=== PATIENT | male | born 1945 | race Caucasian/White ===

== ENCOUNTER 2017-10-24 22:22 | Inpatient (IN) ==
[2017-10-24] MEDS ORDERED: ASPIRIN 325 MG TABLET PO STA (23:02)
[2017-10-24] MEDS ORDERED: DILTIAZEM 50 MG/10 ML VIAL IV STA (23:03)
[2017-10-24] MEDS ORDERED: DILTIAZEM 100 MG VIAL.ADD IV ONE (23:14)
[2017-10-24] MEDS ORDERED: SODIUM CHLORIDE 0.9% 100 ML IV ONE (23:15)
[2017-10-24] MEDS ORDERED: DILTIAZEM 25 MG/5 ML VIAL IV STA (23:16)
[2017-10-24 23:18] LABS: Basophils % 0.4 % (0.0-0.8); Eosinophils # 0.2 10*3/uL (0.0-0.87); Eosinophils % 2.1 % (0.00-10.9); Hematocrit 29.8 VOL% (42.0-52.0); Hemoglobin 9.2 GM/DL (14.0-18.0); Immature Granulocytes % 0.4 %; Immature Granulocytes Absolute 0.03 #; Lymphocytes # 0.4 10*3/uL (1.4-4.0); Lymphocytes % 5.5 % (21.2-54.2); Mean Corpuscular HGB Conc 30.9 GM/DL (32-36); Mean Corpuscular Hemoglobin 27 PG (27-34); Mean Corpuscular Volume 87.1 FL (87-102); Mean Platelet Volume 10.4 FL (9.6-12.0); Monocytes # 0.3 10*3/uL (0.11-0.8); Monocytes % 4.1 % (1.7-12.7); Neutrophils # 6.8 10*3/uL (1.4-7.4); Neutrophils % 87.5 % (38.7-73.9); Platelet Count 278 T/CUMM (130-400); Red Blood Count 3.42 MC/CUMM (3.8-5.5); White Blood Count 7.8 T/CUMM (4-12)
[2017-10-24] MEDS ORDERED: ASPIRIN 325 MG TABLET ONE (23:18)
[2017-10-24 23:25] LABS: INR 1.1; PT Patient Result 11.4 SECS
[2017-10-24] MEDS ORDERED: DILTIAZEM INJ 100 MG in SODIUM CHLORIDE 0.9% 100 ML IV SCH (23:30)
[2017-10-24 23:38] LABS: Alanine Aminotransferase 18 U/L (16-61); Albumin 3.7 G/DL (3.4-5.0); Alkaline Phosphatase 110 U/L (45-117); Aspartate Amino Transferase 19 U/L (0-37); Blood Urea Nitrogen 27 MG/DL (7-18); Calcium 8.6 MG/DL (8.5-10.1); Glucose 171 MG/DL (74-106); Osmolality,Calculated 289.3 MOS/KG (273-304); Sodium 141 MMOL/L (136-145); Total Protein 7.3 G/DL (6.4-8.3)
[2017-10-24 23:58] LABS: Troponin I Only 0.068 NG/ML (0.00-0.045)
[2017-10-25] MEDS ORDERED: FUROSEMIDE 40 MG/4 ML VIAL IV STA (00:03)
[2017-10-25] MEDS ORDERED: FUROSEMIDE 20 MG/2 ML VIAL ONE (00:11)
[2017-10-25 00:32] LABS: Amorphous Crystals,Urine Occasional /HPF (Few); Apearance,Urine Slightly Hazy (Clear); Bilirubin,Urine Negative (Negative); Blood, Urine Negative (Negative); Glucose,Urine (UA) Negative (Negative); Hyaline Casts,Urine 4 /LPF (0-3); Ketones,Urine Negative (Negative); Mucus,Urine Few /LPF (Occasional); Nitrite,Urine Negative (Negative); Protein,Urine 30 MG/DL; RBC,Urine 18 /HPF (0-4); Squamous Epithelial Cell,Urine Occasional /HPF (0-10); Urine Color Yellow (Yellow); Urine Specific Gravity 1.017 (1.001-1.035); Urine Urobilinogen < 2.0 EU/DL (0.2-1.0); WBC,Urine 56 /HPF (0-6)
[2017-10-25] MEDS ORDERED: DEXTROSE 50% 25 GM/50 ML VIAL IV PRN (02:39)
[2017-10-25] MEDS ORDERED: GLUCAGON 1 MG VIAL IM PRN (02:39)
[2017-10-25] MEDS ORDERED: ACETAMINOPHEN 325 MG TABLET PO PRN (02:39)
[2017-10-25] MEDS ORDERED: ONDANSETRON 4 MG/2 ML VIAL IV PRN (02:39)
[2017-10-25 05:28] LABS: Basophils % 0.4 % (0.0-0.8); Eosinophils # 0.2 10*3/uL (0.0-0.87); Hematocrit 28.4 VOL% (42.0-52.0); Hemoglobin 8.7 GM/DL (14.0-18.0); Immature Granulocytes % 0.4 %; Immature Granulocytes Absolute 0.03 #; Lymphocytes # 0.6 10*3/uL (1.4-4.0); Lymphocytes % 7.7 % (21.2-54.2); Mean Corpuscular HGB Conc 30.6 GM/DL (32-36); Mean Corpuscular Hemoglobin 27 PG (27-34); Mean Corpuscular Volume 87.4 FL (87-102); Mean Platelet Volume 9.7 FL (9.6-12.0); Monocytes # 0.5 10*3/uL (0.11-0.8); Neutrophils # 6.3 10*3/uL (1.4-7.4); Neutrophils % 82.5 % (38.7-73.9); Platelet Count 238 T/CUMM (130-400); Red Blood Count 3.25 MC/CUMM (3.8-5.5); Red Cell Distribution Width 17.7 % (9.3-17.3); White Blood Count 7.6 T/CUMM (4-12)
[2017-10-25 08:10] LABS: Albumin 3.5 G/DL (3.4-5.0); Bilirubin,Total 0.9 MG/DL (0.2-1.0); Calcium 7.9 MG/DL (8.5-10.1); Osmolality,Calculated 287.3 MOS/KG (273-304); Potassium 3.2 MMOL/L (3.5-5.1); Total Protein 6.6 G/DL (6.4-8.3)
[2017-10-25 08:12] LABS: Troponin I Only 0.361 NG/ML (0.00-0.045)
[2017-10-25] MEDS: INSULIN LISPRO 100 UNIT/ML SUBCUT SCH ×4 (08:19→21:52)
[2017-10-25] MEDS: ENOXAPARIN 40 MG/0.4 ML SYRINGE SUBCUT SCH (08:53)
[2017-10-25] MEDS: LISINOPRIL 20 MG TABLET PO SCH (09:42)
[2017-10-25] MEDS: CYANOCOBALAMIN 500 MCG TABLET PO SCH (09:42)
[2017-10-25] MEDS: FUROSEMIDE 40 MG TABLET PO SCH ×2 (09:42→21:22)
[2017-10-25] MEDS: ATORVASTATIN 80 MG TABLET PO SCH (09:42)
[2017-10-25] MEDS: DILTIAZEM 60 MG TABLET PO SCH ×2 (09:42→21:22)
[2017-10-25] MEDS: MULTIVITAMIN (CENTRUM) TABLET PO SCH (09:42)
[2017-10-25] MEDS: ASPIRIN EC 81 MG TABLET PO SCH (09:43)
[2017-10-25] MEDS: CARVEDILOL 25 MG TABLET PO SCH ×2 (09:43→21:22)
[2017-10-25] MEDS: BRIMONIDINE/TIMOLOL OPH SOLN 5 ML BOTTLE BOTH EYES SCH ×2 (11:02→21:22)
[2017-10-25] MEDS: cefTRIAXone 1,000 MG in SYRINGE 1 EACH IV SCH (11:02)
[2017-10-25] MEDS ORDERED: LATANOPROST 0.005% OPH SOLN 2.5 ML BOTTLE BOTH EYES SCH (21:00)
[2017-10-26] MEDS: INSULIN LISPRO 100 UNIT/ML SUBCUT SCH ×2 (08:40→12:08)
[2017-10-26] MEDS: ATORVASTATIN 80 MG TABLET PO SCH (08:43)
[2017-10-26] MEDS: LISINOPRIL 20 MG TABLET PO SCH (08:46)
[2017-10-26] MEDS: CARVEDILOL 25 MG TABLET PO SCH (08:47)
[2017-10-26] MEDS: MULTIVITAMIN (CENTRUM) TABLET PO SCH (08:47)
[2017-10-26] MEDS: ASPIRIN EC 81 MG TABLET PO SCH (08:49)
[2017-10-26] MEDS: DILTIAZEM 60 MG TABLET PO SCH (08:49)
[2017-10-26] MEDS: CYANOCOBALAMIN 500 MCG TABLET PO SCH (08:49)
[2017-10-26] MEDS: FUROSEMIDE 40 MG TABLET PO SCH (08:50)
[2017-10-26] MEDS: ENOXAPARIN 40 MG/0.4 ML SYRINGE SUBCUT SCH (08:51)
[2017-10-26] MEDS: cefTRIAXone 1,000 MG in SYRINGE 1 EACH IV SCH ×2 (08:53→09:47)
[2017-10-26] MEDS: BRIMONIDINE/TIMOLOL OPH SOLN 5 ML BOTTLE BOTH EYES SCH (09:18)
[2017-10-26 12:00] VITALS: BP 108/72
== END 2017-10-26 14:44 | disposition home or self-care (01) | DRG 309 ==
LOC: N.ED 22:22 → SUATTDRO 10-25 02:39 → N.EDINP 10-25 02:39 → N.TELES 10-25 03:12
PROVIDERS: ADMIT Internal Medicine Infectious Disease; ATTEND Internal Medicine

== ENCOUNTER 2017-12-03 15:29 | Inpatient (IN) ==
[2017-12-03] MEDS ORDERED: TEMAZEPAM 7.5 MG CAPSULE PO PRN (15:31)
[2017-12-03] MEDS ORDERED: BENZTROPINE 2 MG/2 ML AMP IV PRN (15:31)
[2017-12-03] MEDS ORDERED: MYLANTA/LIDO VISC 2:1 300 ML BOTTLE SWISH/SWAL PRN (15:31)
[2017-12-03] MEDS ORDERED: chlorproMAZINE 25 MG TABLET PO PRN (15:31)
[2017-12-03] MEDS ORDERED: diphenhydrAMINE CAP 25 MG CAPSULE PO PRN (15:31)
[2017-12-03] MEDS ORDERED: LOPERAMIDE 2 MG CAPSULE PO PRN ×2 (15:31)
[2017-12-03] MEDS ORDERED: PROMETHAZINE INJ 25 MG in SODIUM CHLORIDE 0.9% 50 ML IV PRN (15:31)
[2017-12-03] MEDS ORDERED: ACETAMINOPHEN 325 MG TABLET PO PRN (15:31)
[2017-12-03] MEDS ORDERED: LACTULOSE 20 GM/30 ML UDCUP PO PRN (15:31)
[2017-12-03] MEDS ORDERED: chlorproMAZINE INJ 50 MG in SODIUM CHLORIDE 0.9% 100 ML IV PRN (15:31)
[2017-12-03] MEDS ORDERED: chlorproMAZINE INJ 25 MG in SODIUM CHLORIDE 0.9% 100 ML IV PRN (15:31)
[2017-12-03] MEDS ORDERED: guaiFENesin 200 MG/10 ML UDCUP PO PRN (15:31)
[2017-12-03] MEDS ORDERED: ALUMINUM/MAGNES/SIMETH MAX STR 30 ML UDCUP PO PRN (15:31)
[2017-12-03] MEDS ORDERED: ONDANSETRON 4 MG/2 ML VIAL IV PRN (15:31)
[2017-12-03] MEDS ORDERED: traMADol 50 MG TABLET PO PRN (15:31)
[2017-12-03] MEDS ORDERED: MAGNESIUM HYDROXIDE SUSP 30 ML UDCUP PO PRN (15:31)
[2017-12-03] MEDS ORDERED: MYLANTA/LIDO VISC 2:1 300 ML BOTTLE SWISH/SPIT PRN (15:31)
[2017-12-03] MEDS ORDERED: ALPRAZolam 0.25 MG TABLET PO PRN (15:31)
[2017-12-03 16:44] LABS: Basophils % 1.3 % (0.0-0.8); Eosinophils # 0.1 10*3/uL (0.0-0.87); Eosinophils % 5.2 % (0.00-10.9); Hematocrit 23.4 VOL% (42.0-52.0); Hemoglobin 7.1 GM/DL (14.0-18.0); Lymphocytes # 0.7 10*3/uL (1.4-4.0); Lymphocytes % 32.3 % (21.2-54.2); Mean Corpuscular HGB Conc 30.3 GM/DL (32-36); Mean Corpuscular Hemoglobin 24 PG (27-34); Mean Corpuscular Volume 79.6 FL (87-102); Mean Platelet Volume 10.4 FL (9.6-12.0); Monocytes # 1.3 10*3/uL (0.11-0.8); Monocytes % 55.9 % (1.7-12.7); Neutrophils # 0.1 10*3/uL (1.4-7.4); Neutrophils % 5.3 % (38.7-73.9); Platelet Count 333 T/CUMM (130-400); Red Blood Count 2.94 MC/CUMM (3.8-5.5); Red Cell Distribution Width 16.8 % (9.3-17.3); White Blood Count 2.3 T/CUMM (4-12)
[2017-12-03] MEDS: PIPERACILLIN/TAZOBACTAM 3,375 MG in SODIUM CHLORIDE 0.9% 100 ML IV SCH (16:51)
[2017-12-03 17:08] LABS: Albumin 2.9 G/DL (3.4-5.0); Bilirubin,Total 0.6 MG/DL (0.2-1.0); Calcium 8.1 MG/DL (8.5-10.1); Potassium 4.3 MMOL/L (3.5-5.1); Total Protein 6.7 G/DL (6.4-8.3); Uric Acid 5.3 MG/DL (3.5-7.2)
[2017-12-03 17:41] LABS: Eosinophils 7 % (0-10); Lymphocytes 50 % (20-55); Segmented Neutrophils 8 % (50-85); Total Cells Counted 100
[2017-12-03 17:42] LABS: Hypochromasia 1+; Microcytosis 1+; Ovalocytes Few; Platelet Estimate Normal; Polychromasia Few
[2017-12-03] MEDS: FLUCONAZOLE 200 MG TABLET PO SCH (18:58)
[2017-12-03] MEDS: FILGRASTIM-SNDZ 300 MCG/0.5 ML SYRINGE SUBCUT SCH (18:58)
[2017-12-03 20:17] LABS: Apearance,Urine CLOUDY (Clear); Bilirubin,Urine Negative (Negative); Blood, Urine Moderate mg/dL (Negative); Glucose,Urine (UA) Negative (Negative); Granular Casts,Urine 6 /LPF (0-1); Hyaline Casts,Urine 8 /LPF (0-3); Ketones,Urine Negative (Negative); Mucus,Urine Few /LPF (Occasional); Nitrite,Urine Negative (Negative); Protein,Urine 30 MG/DL; RBC,Urine 344 /HPF (0-4); Squamous Epithelial Cell,Urine Occasional /HPF (0-10); Urine Color Yellow (Yellow); Urine Specific Gravity 1.014 (1.001-1.035); Urine Urobilinogen < 2.0 EU/DL (0.2-1.0); WBC,Urine 2 /HPF (0-6)
[2017-12-03] MEDS ORDERED: LATANOPROST 0.005% OPH SOLN 2.5 ML BOTTLE BOTH EYES SCH (21:00)
[2017-12-03] MEDS: DILTIAZEM 60 MG TABLET PO SCH (21:06)
[2017-12-03] MEDS: FERROUS SULFATE 325 MG TABLET PO SCH (21:06)
[2017-12-03] MEDS: BRIMONIDINE/TIMOLOL OPH SOLN 5 ML BOTTLE BOTH EYES SCH (21:07)
[2017-12-04] MEDS: PIPERACILLIN/TAZOBACTAM 3,375 MG in SODIUM CHLORIDE 0.9% 100 ML IV SCH ×2 (06:00→08:49)
[2017-12-04] MEDS ORDERED: HEPARIN LOCK FLUSH 500 UNIT/5 ML SYRINGE IV ONE (07:31)
[2017-12-04 07:45] LABS: Eosinophils # 0.2 10*3/uL (0.0-0.87); Eosinophils % 2.1 % (0.00-10.9)
[2017-12-04 07:50] LABS: Basophils # 0.1 10*3/uL (0.0-0.2); Basophils % 0.7 % (0.0-0.8); Hematocrit 29.2 VOL% (42.0-52.0); Immature Granulocytes % 0.8 %; Immature Granulocytes Absolute 0.08 #; Lymphocytes % 9.6 % (21.2-54.2); Mean Corpuscular HGB Conc 31.2 GM/DL (32-36); Mean Corpuscular Hemoglobin 25 PG (27-34); Mean Corpuscular Volume 81.1 FL (87-102); Mean Platelet Volume 9.8 FL (9.6-12.0); Monocytes # 2.1 10*3/uL (0.11-0.8); Monocytes % 19.6 % (1.7-12.7); Neutrophils # 7.1 10*3/uL (1.4-7.4); Neutrophils % 67.2 % (38.7-73.9); Platelet Count 326 T/CUMM (130-400); Red Cell Distribution Width 16.4 % (9.3-17.3)
[2017-12-04 07:55] LABS: White Blood Count 10.6 T/CUMM (4-12)
[2017-12-04 07:56] LABS: Hemoglobin 9.1 GM/DL (14.0-18.0)
[2017-12-04 08:04] LABS: Albumin 2.8 G/DL (3.4-5.0); Bilirubin,Total 0.7 MG/DL (0.2-1.0); Calcium 8.1 MG/DL (8.5-10.1); Osmolality,Calculated 280.4 MOS/KG (273-304); Potassium 3.9 MMOL/L (3.5-5.1); Total Protein 6.7 G/DL (6.4-8.3)
[2017-12-04 08:16] LABS: Band Neutrophils 15 % (0-10); Eosinophils 1 % (0-10); Lymphocytes 5 % (20-55); Metamyelocytes 1 %; Segmented Neutrophils 55 % (50-85); Total Cells Counted 100
[2017-12-04 08:17] LABS: Hypochromasia 1+
[2017-12-04 08:18] LABS: Elliptocytes Few; Microcytosis 1+; Poikilocytosis 1+
[2017-12-04 08:19] LABS: Acanthocytes Few; Platelet Estimate Normal
[2017-12-04] MEDS ORDERED: CARVEDILOL 25 MG TABLET PO SCH (09:00)
[2017-12-04] MEDS ORDERED: MULTIVITAMIN (CENTRUM) TABLET PO SCH (09:00)
[2017-12-04] MEDS ORDERED: CYANOCOBALAMIN 500 MCG TABLET PO SCH (09:00)
[2017-12-04] MEDS: FERROUS SULFATE 325 MG TABLET PO SCH (09:22)
[2017-12-04] MEDS: FLUCONAZOLE 200 MG TABLET PO SCH (09:22)
[2017-12-04] MEDS: DILTIAZEM 60 MG TABLET PO SCH (09:23)
[2017-12-04] MEDS: FILGRASTIM-SNDZ 300 MCG/0.5 ML SYRINGE SUBCUT SCH (09:26)
[2017-12-04] MEDS: BRIMONIDINE/TIMOLOL OPH SOLN 5 ML BOTTLE BOTH EYES SCH (09:31)
[2017-12-04 13:06] VITALS: BP 102/66
== END 2017-12-04 14:35 | disposition home or self-care (01) | DRG 809 ==
LOC: N.4EOUT 15:29 → N.4E 15:30
PROVIDERS: ADMIT Specialist; ATTEND Specialist

== ENCOUNTER 2018-09-17 17:58 | Inpatient (IN) ==
[2018-09-17 19:39] LABS: Basophils # 0.1 10*3/uL (0.0-0.2); Basophils % 0.8 % (0.0-0.8); Eosinophils # 0.4 10*3/uL (0.0-0.87); Eosinophils % 3.3 % (0.00-10.9); Hematocrit 24.4 VOL% (42.0-52.0); Hemoglobin 7.4 GM/DL (14.0-18.0); Immature Granulocytes % 0.5 %; Immature Granulocytes Absolute 0.06 #; Lymphocytes # 0.7 10*3/uL (1.4-4.0); Mean Corpuscular HGB Conc 30.3 GM/DL (32-36); Mean Corpuscular Hemoglobin 26 PG (27-34); Mean Corpuscular Volume 87.1 FL (87-102); Mean Platelet Volume 11.6 FL (9.6-12.0); Monocytes # 0.7 10*3/uL (0.11-0.8); Monocytes % 6.3 % (1.7-12.7); Neutrophils # 9.6 10*3/uL (1.4-7.4); Neutrophils % 83.1 % (38.7-73.9); Platelet Count 221 T/CUMM (130-400); Red Cell Distribution Width 17.4 % (9.3-17.3); White Blood Count 11.5 T/CUMM (4-12)
[2018-09-17 19:49] LABS: PT Patient Result 10.9 SECS; Partial Thromboplastin Time 27.1 SECS (0-40)
[2018-09-17 19:57] LABS: Alanine Aminotransferase 19 U/L (16-61); Albumin 3.1 G/DL (3.4-5.0); Alkaline Phosphatase 107 U/L (45-117); Aspartate Amino Transferase 18 U/L (0-37); Bilirubin,Total < 0.39 MG/DL (0.2-1.0); Blood Urea Nitrogen 28 MG/DL (7-18); Calcium 8.4 MG/DL (8.5-10.1); Glucose 111 MG/DL (74-106); Osmolality,Calculated 281.7 MOS/KG (273-304); Potassium 4.3 MMOL/L (3.5-5.1); Sodium 138 MMOL/L (136-145); Total Protein 6.7 G/DL (6.4-8.3)
[2018-09-17] MEDS ORDERED: SODIUM CHLORIDE 0.9% 1,000 ML IV PRN (20:35)
[2018-09-17] MEDS ORDERED: ACETAMINOPHEN 325 MG TABLET PO PRN (20:39)
[2018-09-17] MEDS ORDERED: chlorproMAZINE 25 MG TABLET PO PRN (20:39)
[2018-09-17] MEDS ORDERED: traMADol 50 MG TABLET PO PRN (20:39)
[2018-09-17] MEDS ORDERED: LACTULOSE 20 GM/30 ML UDCUP PO PRN (20:39)
[2018-09-17] MEDS ORDERED: guaiFENesin 200 MG/10 ML UDCUP PO PRN (20:39)
[2018-09-17] MEDS ORDERED: MYLANTA/LIDO VISC 2:1 300 ML BOTTLE SWISH/SPIT PRN (20:39)
[2018-09-17] MEDS ORDERED: chlorproMAZINE INJ 25 MG in SODIUM CHLORIDE 0.9% 100 ML IV PRN (20:39)
[2018-09-17] MEDS ORDERED: chlorproMAZINE INJ 50 MG in SODIUM CHLORIDE 0.9% 100 ML IV PRN (20:39)
[2018-09-17] MEDS ORDERED: MAGNESIUM HYDROXIDE SUSP 30 ML UDCUP PO PRN (20:39)
[2018-09-17] MEDS ORDERED: ONDANSETRON 4 MG/2 ML VIAL IV PRN (20:39)
[2018-09-17] MEDS ORDERED: TEMAZEPAM 7.5 MG CAPSULE PO PRN (20:39)
[2018-09-17] MEDS ORDERED: MYLANTA/LIDO VISC 2:1 300 ML BOTTLE SWISH/SWAL PRN (20:39)
[2018-09-17] MEDS ORDERED: BENZTROPINE 2 MG/2 ML AMP IV PRN (20:39)
[2018-09-17] MEDS ORDERED: LOPERAMIDE 2 MG CAPSULE PO PRN ×2 (20:39)
[2018-09-17] MEDS ORDERED: ALUMINUM/MAGNES/SIMETH MAX STR 30 ML UDCUP PO PRN (20:39)
[2018-09-17] MEDS ORDERED: diphenhydrAMINE CAP 25 MG CAPSULE PO PRN (20:39)
[2018-09-17] MEDS ORDERED: PROMETHAZINE INJ 25 MG in SODIUM CHLORIDE 0.9% 50 ML IV PRN (20:39)
[2018-09-17] MEDS: SODIUM CHLORIDE 0.45% 1,000 ML IV SCH (22:45)
[2018-09-18 06:06] LABS: Basophils # 0.1 10*3/uL (0.0-0.2); Basophils % 1.1 % (0.0-0.8); Eosinophils # 0.4 10*3/uL (0.0-0.87); Eosinophils % 3.8 % (0.00-10.9); Hematocrit 26.1 VOL% (42.0-52.0); Hemoglobin 8.1 GM/DL (14.0-18.0); Immature Granulocytes % 0.7 %; Immature Granulocytes Absolute 0.07 #; Lymphocytes # 0.7 10*3/uL (1.4-4.0); Lymphocytes % 7.4 % (21.2-54.2); Mean Corpuscular Hemoglobin 27 PG (27-34); Mean Corpuscular Volume 87.6 FL (87-102); Mean Platelet Volume 9.8 FL (9.6-12.0); Monocytes # 0.6 10*3/uL (0.11-0.8); Monocytes % 6.8 % (1.7-12.7); Neutrophils # 7.6 10*3/uL (1.4-7.4); Neutrophils % 80.2 % (38.7-73.9); Platelet Count 275 T/CUMM (130-400); Red Blood Count 2.98 MC/CUMM (3.8-5.5); Red Cell Distribution Width 16.3 % (9.3-17.3); White Blood Count 9.4 T/CUMM (4-12)
[2018-09-18 06:22] LABS: Albumin 2.9 G/DL (3.4-5.0); Bilirubin,Total 0.5 MG/DL (0.2-1.0); Calcium 8.1 MG/DL (8.5-10.1); Osmolality,Calculated 279.7 MOS/KG (273-304); Potassium 4.1 MMOL/L (3.5-5.1); Total Protein 6.6 G/DL (6.4-8.3)
[2018-09-18] MEDS ORDERED: SODIUM CHLORIDE 0.9% 1,000 ML IV PRN (09:33)
[2018-09-18] MEDS: SODIUM CHLORIDE 0.45% 1,000 ML IV SCH (11:19)
[2018-09-18] MEDS: ALPRAZolam 0.25 MG TABLET PO PRN (15:12)
[2018-09-18] MEDS: DEXT 5% NACL 0.45% KCL 20 MEQ 20 MEQ/1,000 ML BAG IV SCH (15:15)
[2018-09-18] MEDS: NICOTINE 21 MG/24 HR PATCH TRANSDERM SCH (19:37)
[2018-09-19 05:59] LABS: Basophils # 0.1 10*3/uL (0.0-0.2); Basophils % 1.2 % (0.0-0.8); Eosinophils # 0.4 10*3/uL (0.0-0.87); Eosinophils % 4.4 % (0.00-10.9); Hematocrit 32.4 VOL% (42.0-52.0); Hemoglobin 10.4 GM/DL (14.0-18.0); Immature Granulocytes % 0.5 %; Immature Granulocytes Absolute 0.05 #; Lymphocytes # 0.7 10*3/uL (1.4-4.0); Lymphocytes % 7.1 % (21.2-54.2); Mean Corpuscular HGB Conc 32.1 GM/DL (32-36); Mean Corpuscular Hemoglobin 28 PG (27-34); Mean Corpuscular Volume 87.1 FL (87-102); Mean Platelet Volume 10.1 FL (9.6-12.0); Monocytes # 0.8 10*3/uL (0.11-0.8); Monocytes % 7.9 % (1.7-12.7); Neutrophils # 7.9 10*3/uL (1.4-7.4); Neutrophils % 78.9 % (38.7-73.9); Platelet Count 279 T/CUMM (130-400); Red Blood Count 3.72 MC/CUMM (3.8-5.5); Red Cell Distribution Width 16.1 % (9.3-17.3)
[2018-09-19 06:20] LABS: Albumin 3.2 G/DL (3.4-5.0); Bilirubin,Total 1.1 MG/DL (0.2-1.0); Calcium 8.5 MG/DL (8.5-10.1); Osmolality,Calculated 276.7 MOS/KG (273-304); Total Protein 6.8 G/DL (6.4-8.3)
[2018-09-19] MEDS: ALPRAZolam 0.25 MG TABLET PO PRN ×3 (07:52→22:53)
[2018-09-19] MEDS: NICOTINE 21 MG/24 HR PATCH TRANSDERM SCH ×2 (07:54→16:38)
[2018-09-19] MEDS: DEXT 5% NACL 0.45% KCL 20 MEQ 20 MEQ/1,000 ML BAG IV SCH ×2 (16:37→20:05)
[2018-09-20] MEDS: DEXT 5% NACL 0.45% KCL 20 MEQ 20 MEQ/1,000 ML BAG IV SCH (04:52)
[2018-09-20] MEDS: NICOTINE 21 MG/24 HR PATCH TRANSDERM SCH (09:01)
[2018-09-20 09:41] LABS: Hematocrit 34.3 VOL% (42.0-52.0); Hemoglobin 11.1 GM/DL (14.0-18.0)
[2018-09-20 11:35] VITALS: BP 138/87
== END 2018-09-20 14:23 | disposition home or self-care (01) | DRG 375 ==
LOC: N.EDINP 17:58 → N.ED 17:58 → N.4E 21:51
PROVIDERS: ADMIT Specialist; ATTEND Specialist

== ENCOUNTER 2018-10-14 07:05 | Inpatient (IN) ==
[2018-10-14] MEDS ORDERED: SODIUM CHLORIDE 0.9% 1,000 ML IV PRN (09:19)
[2018-10-14] MEDS ORDERED: GLUCAGON 1 MG VIAL IM PRN (09:40)
[2018-10-14] MEDS ORDERED: NICOTINE 21 MG/24 HR PATCH TRANSDERM PRN (09:40)
[2018-10-14] MEDS ORDERED: DEXTROSE 50% 25 GM/50 ML SYRINGE IV PRN (09:40)
[2018-10-14] MEDS ORDERED: ONDANSETRON 4 MG/2 ML VIAL IV PRN (09:40)
[2018-10-14] MEDS ORDERED: DOCUSATE SODIUM 100 MG CAPSULE PO PRN (09:40)
[2018-10-14] MEDS ORDERED: ACETAMINOPHEN 325 MG TABLET PO PRN (09:40)
[2018-10-14] MEDS: PANTOPRAZOLE 40 MG TABLET PO SCH (10:19)
[2018-10-14] MEDS ORDERED: SODIUM CHLORIDE 0.9% 500 ML IV ONE (11:01)
[2018-10-14] MEDS: INSULIN LISPRO 100 UNIT/ML SUBCUT SCH ×3 (11:20→23:45)
[2018-10-14 11:27] LABS: Basophils % 0.2 % (0.0-0.8); Eosinophils # 0.2 10*3/uL (0.0-0.87); Eosinophils % 1.3 % (0.00-10.9); Immature Granulocytes % 0.8 %; Immature Granulocytes Absolute 0.11 #; Lymphocytes # 0.7 10*3/uL (1.4-4.0); Mean Corpuscular HGB Conc 29.8 GM/DL (32-36); Mean Corpuscular Hemoglobin 28 PG (27-34); Mean Platelet Volume 9.2 FL (9.6-12.0); Monocytes # 0.8 10*3/uL (0.11-0.8); Monocytes % 5.6 % (1.7-12.7); Neutrophils # 12.4 10*3/uL (1.4-7.4); Neutrophils % 87.1 % (38.7-73.9); Platelet Count 255 T/CUMM (130-400); Red Blood Count 1.82 MC/CUMM (3.8-5.5); Red Cell Distribution Width 18.1 % (9.3-17.3); White Blood Count 14.3 T/CUMM (4-12)
[2018-10-14 11:30] LABS: Hematocrit 17.1 VOL% (42.0-52.0); Hemoglobin 5.1 GM/DL (14.0-18.0)
[2018-10-14 11:45] LABS: Elliptocytes Few; Hypochromasia 2+; Platelet Estimate Adequate
[2018-10-14 12:06] LABS: Calcium 7.9 MG/DL (8.5-10.1); Osmolality,Calculated 290.3 MOS/KG (273-304)
[2018-10-14 13:53] LABS: Alanine Aminotransferase 15 U/L (16-61); Albumin 2.4 G/DL (3.4-5.0); Alkaline Phosphatase 137 U/L (45-117); Aspartate Amino Transferase 23 U/L (0-37); Bilirubin,Indirect 0.3 MG/DL (0.0-1.0); Bilirubin,Total < 0.39 MG/DL (0.2-1.0); Total Protein 5.7 G/DL (6.4-8.3)
[2018-10-14 18:17] LABS: Hematocrit 23.8 VOL% (42.0-52.0); Hemoglobin 7.3 GM/DL (14.0-18.0)
[2018-10-14 18:31] LABS: Partial Thromboplastin Time 25.4 SECS (0-40)
[2018-10-14] MEDS ORDERED: FUROSEMIDE 40 MG/4 ML VIAL IV ONE (19:23)
[2018-10-14] MEDS: LATANOPROST 0.005% OPH SOLN 2.5 ML BOTTLE BOTH EYES SCH (21:47)
[2018-10-14] MEDS: ATORVASTATIN 20 MG TABLET PO SCH (21:47)
[2018-10-14] MEDS: BRIMONIDINE/TIMOLOL OPH SOLN 5 ML BOTTLE BOTH EYES SCH (21:47)
[2018-10-15] MEDS ORDERED: FUROSEMIDE 40 MG/4 ML VIAL IV ONE (05:00)
[2018-10-15] MEDS ORDERED: ASPIRIN EC 81 MG TABLET PO SCH (09:00)
[2018-10-15 09:44] LABS: Basophils # 0.1 10*3/uL (0.0-0.2); Basophils % 0.4 % (0.0-0.8); Eosinophils # 0.3 10*3/uL (0.0-0.87); Eosinophils % 1.7 % (0.00-10.9); Hematocrit 29.7 VOL% (42.0-52.0); Hemoglobin 9.5 GM/DL (14.0-18.0); Immature Granulocytes % 0.5 %; Immature Granulocytes Absolute 0.08 #; Lymphocytes # 0.5 10*3/uL (1.4-4.0); Lymphocytes % 3.5 % (21.2-54.2); Mean Corpuscular Hemoglobin 28 PG (27-34); Mean Corpuscular Volume 87.6 FL (87-102); Mean Platelet Volume 9.6 FL (9.6-12.0); Monocytes # 0.9 10*3/uL (0.11-0.8); Monocytes % 6.1 % (1.7-12.7); Neutrophils # 12.9 10*3/uL (1.4-7.4); Neutrophils % 87.8 % (38.7-73.9); Platelet Count 222 T/CUMM (130-400); Red Blood Count 3.39 MC/CUMM (3.8-5.5); Red Cell Distribution Width 17.7 % (9.3-17.3); White Blood Count 14.7 T/CUMM (4-12)
[2018-10-15 09:53] LABS: PT Patient Result 11.1 SECS
[2018-10-15] MEDS ORDERED: ETOMIDATE 20 MG/10 ML VIAL IV ONE (10:00)
[2018-10-15] MEDS ORDERED: ESMOLOL 100 MG/10 ML VIAL IV ONE (10:00)
[2018-10-15] MEDS ORDERED: LIDOCAINE 2% 5 ML VIAL ONE (10:00)
[2018-10-15 10:15] LABS: Albumin 2.4 G/DL (3.4-5.0); Bilirubin,Total 0.8 MG/DL (0.2-1.0); Calcium 7.7 MG/DL (8.5-10.1); Osmolality,Calculated 285.3 MOS/KG (273-304); Potassium 3.4 MMOL/L (3.5-5.1)
[2018-10-15] MEDS: INSULIN LISPRO 100 UNIT/ML SUBCUT SCH ×4 (10:37→21:53)
[2018-10-15 10:39] LABS: Anisocytosis 1+; Eosinophils 2 % (0-10); Lymphocytes 2 % (20-55); Polychromasia Slight; Segmented Neutrophils 96 % (50-85); Total Cells Counted 100
[2018-10-15 10:40] LABS: Hypochromasia 1+; Ovalocytes Slight; Platelet Estimate Adequate
[2018-10-15] MEDS: METOPROLOL TARTRATE 50 MG TABLET PO SCH ×3 (13:54→21:53)
[2018-10-15] MEDS: PANTOPRAZOLE 40 MG TABLET PO SCH ×2 (14:57→21:53)
[2018-10-15] MEDS: BRIMONIDINE/TIMOLOL OPH SOLN 5 ML BOTTLE BOTH EYES SCH ×2 (14:57→22:19)
[2018-10-15] MEDS: CYANOCOBALAMIN 500 MCG TABLET PO SCH (14:57)
[2018-10-15] MEDS: MULTIVITAMIN (CENTRUM) TABLET PO SCH (14:57)
[2018-10-15 17:43] LABS: Hematocrit 29.4 VOL% (42.0-52.0); Hemoglobin 9.2 GM/DL (14.0-18.0)
[2018-10-15] MEDS: ATORVASTATIN 20 MG TABLET PO SCH (21:53)
[2018-10-15] MEDS: LATANOPROST 0.005% OPH SOLN 2.5 ML BOTTLE BOTH EYES SCH (22:19)
[2018-10-16 02:24] LABS: Basophils # 0.1 10*3/uL (0.0-0.2); Basophils % 0.4 % (0.0-0.8); Eosinophils # 0.3 10*3/uL (0.0-0.87); Eosinophils % 2.3 % (0.00-10.9); Hematocrit 27.8 VOL% (42.0-52.0); Hemoglobin 8.8 GM/DL (14.0-18.0); Immature Granulocytes % 0.5 %; Immature Granulocytes Absolute 0.07 #; Lymphocytes # 0.6 10*3/uL (1.4-4.0); Lymphocytes % 4.6 % (21.2-54.2); Mean Corpuscular HGB Conc 31.7 GM/DL (32-36); Mean Corpuscular Hemoglobin 28 PG (27-34); Mean Corpuscular Volume 88.3 FL (87-102); Mean Platelet Volume 9.7 FL (9.6-12.0); Monocytes # 0.9 10*3/uL (0.11-0.8); Monocytes % 6.9 % (1.7-12.7); Neutrophils # 11.6 10*3/uL (1.4-7.4); Neutrophils % 85.3 % (38.7-73.9); Platelet Count 228 T/CUMM (130-400); Red Blood Count 3.15 MC/CUMM (3.8-5.5); Red Cell Distribution Width 17.5 % (9.3-17.3); White Blood Count 13.6 T/CUMM (4-12)
[2018-10-16 02:30] LABS: Calcium 7.6 MG/DL (8.5-10.1); Osmolality,Calculated 283.4 MOS/KG (273-304); Potassium 3.4 MMOL/L (3.5-5.1)
[2018-10-16 04:13] LABS: Elliptocytes Few; Eosinophils 4 % (0-10); Hypochromasia 1+; Lymphocytes 5 % (20-55); Platelet Estimate Normal; Segmented Neutrophils 83 % (50-85); Total Cells Counted 100
[2018-10-16] MEDS: CYANOCOBALAMIN 500 MCG TABLET PO SCH (08:04)
[2018-10-16] MEDS: METOPROLOL TARTRATE 50 MG TABLET PO SCH ×2 (08:04→21:09)
[2018-10-16] MEDS: PANTOPRAZOLE 40 MG TABLET PO SCH ×2 (08:04→21:10)
[2018-10-16] MEDS: POTASSIUM CHLORIDE 20 MEQ TABLET PO SCH ×3 (08:04→18:37)
[2018-10-16] MEDS: MULTIVITAMIN (CENTRUM) TABLET PO SCH (08:05)
[2018-10-16] MEDS: INSULIN LISPRO 100 UNIT/ML SUBCUT SCH ×4 (08:05→21:47)
[2018-10-16] MEDS: BRIMONIDINE/TIMOLOL OPH SOLN 5 ML BOTTLE BOTH EYES SCH ×2 (08:13→21:12)
[2018-10-16 10:07] LABS: Hematocrit 28.7 VOL% (42.0-52.0); Hemoglobin 9.2 GM/DL (14.0-18.0)
[2018-10-16] MEDS: DILTIAZEM 30 MG TABLET PO SCH ×2 (12:47→18:37)
[2018-10-16 17:55] LABS: Hematocrit 31.4 VOL% (42.0-52.0); Hemoglobin 9.8 GM/DL (14.0-18.0)
[2018-10-16] MEDS: ATORVASTATIN 20 MG TABLET PO SCH (21:09)
[2018-10-16] MEDS: LATANOPROST 0.005% OPH SOLN 2.5 ML BOTTLE BOTH EYES SCH (21:11)
[2018-10-17] MEDS: DILTIAZEM 30 MG TABLET PO SCH ×3 (01:19→12:25)
[2018-10-17 02:29] LABS: Hematocrit 28.8 VOL% (42.0-52.0); Hemoglobin 9.2 GM/DL (14.0-18.0)
[2018-10-17 02:39] LABS: Calcium 7.9 MG/DL (8.5-10.1); Osmolality,Calculated 284.3 MOS/KG (273-304)
[2018-10-17 05:42] LABS: Basophils % 0.3 % (0.0-0.8); Eosinophils # 0.5 10*3/uL (0.0-0.87); Eosinophils % 3.4 % (0.00-10.9); Hematocrit 30.5 VOL% (42.0-52.0); Hemoglobin 9.4 GM/DL (14.0-18.0); Immature Granulocytes % 0.4 %; Immature Granulocytes Absolute 0.06 #; Lymphocytes # 0.5 10*3/uL (1.4-4.0); Lymphocytes % 3.9 % (21.2-54.2); Mean Corpuscular HGB Conc 30.8 GM/DL (32-36); Mean Corpuscular Hemoglobin 28 PG (27-34); Mean Corpuscular Volume 89.4 FL (87-102); Mean Platelet Volume 10.2 FL (9.6-12.0); Monocytes # 0.9 10*3/uL (0.11-0.8); Monocytes % 6.4 % (1.7-12.7); Neutrophils # 11.7 10*3/uL (1.4-7.4); Neutrophils % 85.6 % (38.7-73.9); Platelet Count 255 T/CUMM (130-400); Red Blood Count 3.41 MC/CUMM (3.8-5.5); Red Cell Distribution Width 17.3 % (9.3-17.3); White Blood Count 13.6 T/CUMM (4-12)
[2018-10-17 07:02] LABS: Anisocytosis 1+; Eosinophils 2 % (0-10); Hypochromasia 1+; Lymphocytes 2 % (20-55); Ovalocytes 1+; Segmented Neutrophils 94 % (50-85); Total Cells Counted 100
[2018-10-17 07:03] LABS: Platelet Estimate Adequate; Tear Drop Cells Few
[2018-10-17] MEDS: INSULIN LISPRO 100 UNIT/ML SUBCUT SCH ×2 (08:39→12:04)
[2018-10-17] MEDS: BRIMONIDINE/TIMOLOL OPH SOLN 5 ML BOTTLE BOTH EYES SCH (08:40)
[2018-10-17] MEDS: CYANOCOBALAMIN 500 MCG TABLET PO SCH (08:40)
[2018-10-17] MEDS: PANTOPRAZOLE 40 MG TABLET PO SCH (08:40)
[2018-10-17] MEDS: METOPROLOL TARTRATE 50 MG TABLET PO SCH (08:41)
[2018-10-17] MEDS: MULTIVITAMIN (CENTRUM) TABLET PO SCH (08:44)
[2018-10-17 12:26] VITALS: BP 96/60
== END 2018-10-17 12:30 | disposition home or self-care (01) | DRG 375 ==
LOC: SUATTDRO 08:48 → N.CC 08:48 → N.TELEN 10-15 01:08
PROVIDERS: ADMIT Internal Medicine; ATTEND Hospitalist